=== PATIENT | male | born 1955 | race Caucasian/White ===

== ENCOUNTER → 2019-12-22 14:27 | Outpatient (CLI) | payer OTHER, SELFPAY ==
[2019-12-22 16:18] LABS: Anion Gap 4 (5-15); BUN 19 mg/dL (7-18); BUN/Creat Ratio 17.8 RATIO (10-20); Calcium,Total 8.8 mg/dL (8.5-10.1); Chloride 109 mmol/L (98-107); Creatinine, Serum 1.07 mg/dL (0.70-1.30); EST Glomerular Filtration Rate 74 mL/min (>60); Est Glom Filt Rate - Afr Amer 90 mL/min (>60); Glucose 89 mg/dL (74-106); Potassium 4.1 mmol/L (3.5-5.1); Sodium Level 140 mmol/L (136-145); Thyroid Stim Hormone (TSH) 0.16 uIU/mL (0.358-3.74)
== END ==
PROVIDERS: PCP Family Medicine; Visit Provider Family Medicine
DX: E03.9 Hypothyroidism, unspecified (principal)
CPT/HCPCS: 36415; 80048; 84443

== ENCOUNTER → 2020-02-09 12:01 | Outpatient (CLI) | payer OTHER, SELFPAY ==
[2020-02-09 15:35] LABS: T4 Free Direct 1.24 ng/dL (0.76-1.46); Thyroid Stim Hormone (TSH) 0.42 uIU/mL (0.358-3.74)
== END ==
PROVIDERS: PCP Family Medicine; Referring Provider Family Medicine; Visit Provider Family Medicine
DX: E03.9 Hypothyroidism, unspecified (principal)
CPT/HCPCS: 36415; 84439; 84443

== ENCOUNTER → 2020-11-22 14:21 | Outpatient (CLI) | payer OTHER, SELFPAY ==
--- NOTE | 2020-11-22 14:24 | RAD_ITS ---
STUDY: X-RAY - LEFT SHOULDER REASON FOR EXAM: Left shoulder pain for 4 months. TECHNIQUE: 4 view(s) of the shoulder. COMPARISON: None. FINDINGS: Normal glenohumeral articulation. 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 Normal acromion. Normal humeral head and visualized proximal humerus. The soft tissue structures are unremarkable. Normal visualized pulmonary apex. RAD/Shoulder min 2 Views IMPRESSION: Acromioclavicular arthrosis. Electronically Signed: Basilio Hart MD at 14:45 EST Tel , Service support ,
== END ==
PROVIDERS: PCP Family Medicine; Referring Provider Family Medicine; Visit Provider Family Medicine
DX: M12.812 Other specific arthropathies, not elsewhere classified, left shoulder (principal)
CPT/HCPCS: 73030

== ENCOUNTER → 2020-12-27 15:04 | Outpatient (CLI) | payer OTHER, SELFPAY ==
--- NOTE | 2020-12-27 15:06 | RAD_ITS ---
EXAM: XR CERVICAL SPINE, 4 OR 5 VIEWS CLINICAL INDICATION: CERVICAL RADICULITIS TECHNIQUE: Frontal, lateral and oblique views of the cervical spine. This report was created using [employer] report generation technology. COMPARISON: None. FINDINGS: VERTEBRAE: Anterior spondylosis of mid cervical levels with uncovertebral hypertrophy. Preserved vertebral body height. No acute fracture. Preservation of the normal cervical lordosis. No significant facet arthropathy. DISC SPACES: Disc space narrowing most conspicuous at C5-C6 and C6-C7. Bilateral foraminal stenosis at C3-C4, C4-C5 and C5-C6 as well as left C6-C7. SOFT TISSUES: Unremarkable. No prevertebral soft tissue widening. LUNG APICES: Clear. 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 Electronically Signed: Antonio Thomason MD ([place]) at 14:17 EDT , Service support ,
[2020-12-27 17:56] LABS: Anion Gap 7 (5-15); BUN 20 mg/dL (7-18); BUN/Creat Ratio 24.6 RATIO (10-20); Calcium,Total 9.1 mg/dL (8.5-10.1); Chloride 106 mmol/L (98-107); Creatinine, Serum 0.81 mg/dL (0.70-1.30); EST Glomerular Filtration Rate 102 mL/min (>60); Est Glom Filt Rate - Afr Amer 123 mL/min (>60); Glucose 66 mg/dL (74-106); Potassium 4.1 mmol/L (3.5-5.1); Sodium Level 139 mmol/L (136-145); T4 Free Direct 1.17 ng/dL (0.76-1.46); Thyroid Stim Hormone (TSH) 0.25 uIU/mL (0.358-3.74)
== END ==
PROVIDERS: PCP Family Medicine; Referring Provider Family Medicine; Visit Provider Family Medicine
DX: M54.12 Radiculopathy, cervical region (principal); E03.9 Hypothyroidism, unspecified; Z87.891 Personal history of nicotine dependence
CPT/HCPCS: 36415; 72050; 80048; 84439; 84443

== ENCOUNTER → 2021-02-28 07:55 | Outpatient (CLI) | payer OTHER, SELFPAY ==
[2021-02-28 11:04] LABS: Anion Gap 3 (5-15); BUN 22 mg/dL (7-18); BUN/Creat Ratio 28.2 RATIO (10-20); Calcium,Total 8.8 mg/dL (8.5-10.1); Chloride 108 mmol/L (98-107); Creatinine, Serum 0.78 mg/dL (0.70-1.30); EST Glomerular Filtration Rate 106 mL/min (>60); Est Glom Filt Rate - Afr Amer 129 mL/min (>60); Glucose 91 mg/dL (74-106); Sodium Level 140 mmol/L (136-145); T4 Free Direct 1.28 ng/dL (0.76-1.46); Thyroid Stim Hormone (TSH) 0.82 uIU/mL (0.358-3.74)
== END ==
PROVIDERS: PCP Family Medicine; Referring Provider Family Medicine; Visit Provider Family Medicine
DX: E03.9 Hypothyroidism, unspecified (principal); Z87.891 Personal history of nicotine dependence
CPT/HCPCS: 36415; 80048; 84439; 84443

== ENCOUNTER → 2022-03-31 | Outpatient (CLI) | payer MEDICARE, OTHER, SELFPAY ==
[2022-03-31 15:55] LABS: Anion Gap 6 (5-15); BUN 20 mg/dL (7-18); Chloride 104 mmol/L (98-107); Creatinine, Serum 1.05 mg/dL (0.70-1.30); EST Glomerular Filtration Rate 75 mL/min (>60); Est Glom Filt Rate - Afr Amer 91 mL/min (>60); Glucose 85 mg/dL (74-106); Potassium 3.4 mmol/L (3.5-5.1); Sodium Level 140 mmol/L (136-145); T4 Free Direct 1.22 ng/dL (0.76-1.46); Thyroid Stim Hormone (TSH) 1.63 uIU/mL (0.358-3.74)
== END | disposition home or self-care (01) ==
LOC: MTLAB 11:51
PROVIDERS: PCP Family Medicine; Referring Provider Family Medicine; Visit Provider Family Medicine
DX: E03.9 Hypothyroidism, unspecified (principal)
CPT/HCPCS: 36415; 80048; 84439; 84443

== ENCOUNTER → 2022-09-30 | Outpatient (CLI) | payer MEDICARE, OTHER, SELFPAY ==
[2022-09-30 16:58] LABS: Anion Gap 6 (5-15); BUN 14 mg/dL (7-18); BUN/Creat Ratio 14.2 RATIO (10-20); Calcium,Total 8.8 mg/dL (8.5-10.1); Chloride 105 mmol/L (98-107); Creatinine, Serum 0.98 mg/dL (0.70-1.30); EST Glomerular Filtration Rate 81 mL/min (>60); Est Glom Filt Rate - Afr Amer 98 mL/min (>60); Glucose 87 mg/dL (74-106); Potassium 3.6 mmol/L (3.5-5.1); Sodium Level 139 mmol/L (136-145); T4 Free Direct 1.08 ng/dL (0.76-1.46)
== END | disposition home or self-care (01) ==
LOC: BFHLAB 14:05
PROVIDERS: PCP Family Medicine; Visit Provider Family Medicine
DX: E03.9 Hypothyroidism, unspecified (principal)
CPT/HCPCS: 36415; 80048; 84439; 84443

== ENCOUNTER → 2022-12-25 | Outpatient (CLI) | payer MEDICARE, OTHER, SELFPAY | END | disposition home or self-care (01) | LOC: BFHLAB 11:26 | PROVIDERS: PCP Family Medicine; Referring Provider Family Medicine; Visit Provider Family Medicine | DX: E03.9 Hypothyroidism, unspecified (principal) | CPT/HCPCS: 36415; 84443 ==

== ENCOUNTER → 2023-03-09 | Outpatient (CLI) | payer MEDICARE, OTHER, SELFPAY ==
[2023-03-09 18:18] LABS: T4 Free Direct 1.03 ng/dL (0.76-1.46); Thyroid Stim Hormone (TSH) 3.44 uIU/mL (0.358-3.74)
== END | disposition home or self-care (01) ==
LOC: BFHLAB 14:42
PROVIDERS: PCP Family Medicine; Referring Provider Family Medicine; Visit Provider Family Medicine
DX: E03.9 Hypothyroidism, unspecified (principal)
CPT/HCPCS: 36415; 84439; 84443

== ENCOUNTER → 2023-09-01 | Outpatient (CLI) | payer MEDICARE, OTHER, SELFPAY ==
[2023-09-01 12:54] LABS: Absolute Neutrophil Count 2.4 X10^3/uL (2.0-7.7); Basophil# 0.07 X10^3/uL; Basophil% 1.7 % (0-1); Eosinophil# 0.17 X10^3/uL; Eosinophils% 4.1 % (0-5); Hematocrit 42.9 % (40-54); Hemoglobin 13.7 g/dL (13.0-16.5); Lymphocyte % 24.3 % (19-41); Mean Corp Hgb Conc 31.9 g/dL (32-36); Mean Corpuscular Volume 87.6 fL (80-94); Mean Platelet Vol. 10.5 fl (6.2-12.0); Monocyte% 12.2 % (0-10); NRBC Flagged by Analyzer 0 % (0-5); Neutrophil # 2.36 X10^3/uL (2.7-7.7); Neutrophil % 57.5 % (47-70); Platelet Count 280 K/mm3 (150-450); RBC Distribution Width CV 13.9 % (11.6-14.6); RBC Distribution Width SD 44.3 fl (35.1-43.9); White Blood Count 4.1 K/mm3 (4.4-11.0)
[2023-09-01 13:00] LABS: ALB/GLOB Ratio 1.1 RATIO (0.9-2.4); AST(SGOT) 25 U/L (15-37); Alanine Aminotransfer ALT/SGPT 29 U/L (16-61); Albumin, Serum 3.5 g/dL (3.2-5.0); Alkaline Phosphatase 59 U/L (45-117); Anion Gap 5 (5-15); BUN 19 mg/dL (7-18); Calcium,Total 8.3 mg/dL (8.5-10.1); Chloride 108 mmol/L (98-107); Cholesterol 187 mg/dL (200); Creatinine, Serum 0.82 mg/dL (0.70-1.30); EST Glomerular Filtration Rate 99 mL/min (>60); Est Glom Filt Rate - Afr Amer 120 mL/min (>60); Globulin 3.2 g/dL (2.2-4.2); Glucose 94 mg/dL (74-106); High Density Lipoprotein 54 mg/dL; PSA,Total - Annual Screen 1.48 ng/mL (0.00-4.00); Potassium 4.5 mmol/L (3.5-5.1); Protein, Total 6.7 g/dL (6.4-8.2); Sodium Level 140 mmol/L (136-145); T4 Free Direct 1.35 ng/dL (0.76-1.46); Triglycerides 65 mg/dL; Very Low Density Lipoprotein 13 mg/dL (5-40)
== END | disposition home or self-care (01) ==
LOC: BFHLAB 11:01
PROVIDERS: PCP Nurse Practitioner Family; Visit Provider Nurse Practitioner Family
DX: E03.9 Hypothyroidism, unspecified (principal); E78.5 Hyperlipidemia, unspecified; I10 Essential (primary) hypertension; Z12.5 Encounter for screening for malignant neoplasm of prostate
CPT/HCPCS: 36415; 80053; 80061; 84153; 84439; 84443; 85025; G0103

== ENCOUNTER → 2024-03-08 | Outpatient (CLI) | payer MEDICARE, OTHER, SELFPAY ==
[2024-03-08 16:16] LABS: T4 Free Direct 1.32 ng/dL (0.76-1.46); Thyroid Stim Hormone (TSH) 1.29 uIU/mL (0.358-3.74)
== END | disposition home or self-care (01) ==
LOC: BFHLAB 11:21
PROVIDERS: PCP Nurse Practitioner Family; Referring Provider Nurse Practitioner Family; Visit Provider Nurse Practitioner Family
DX: E03.9 Hypothyroidism, unspecified (principal)
CPT/HCPCS: 36415; 84439; 84443

== ENCOUNTER → 2024-11-18 | Outpatient (CLI) | payer MEDICARE, OTHER, SELFPAY ==
[2024-11-18 10:46] LABS: T4 Free Direct 1.61 ng/dL (0.76-1.46); Thyroid Stim Hormone (TSH) 0.048 uIU/mL (0.358-3.740)
== END | disposition home or self-care (01) ==
LOC: LAB 09:08
PROVIDERS: PCP Nurse Practitioner Family; Referring Provider Nurse Practitioner Family; Visit Provider Nurse Practitioner Family
DX: E03.9 Hypothyroidism, unspecified (principal)
CPT/HCPCS: 36415; 84439; 84443

== ENCOUNTER → 2025-01-04 | Outpatient (CLI) | payer MEDICARE, OTHER, SELFPAY ==
[2025-01-04 17:03] LABS: Thyroid Stim Hormone (TSH) 0.104 uIU/mL (0.300-4.200)
== END | disposition home or self-care (01) ==
LOC: MTLAB 13:29
PROVIDERS: PCP Nurse Practitioner Family; Referring Provider Nurse Practitioner Family; Visit Provider Nurse Practitioner Family
DX: E03.9 Hypothyroidism, unspecified (principal)
CPT/HCPCS: 36415; 84439; 84443

== ENCOUNTER → 2025-02-28 | Outpatient (CLI) | payer MEDICARE, OTHER, SELFPAY | END | disposition home or self-care (01) | LOC: MTLAB 11:44 | PROVIDERS: PCP Nurse Practitioner Family; Referring Provider Nurse Practitioner Family; Visit Provider Nurse Practitioner Family | DX: E03.9 Hypothyroidism, unspecified (principal) | CPT/HCPCS: 36415; 84439; 84443 ==

== ENCOUNTER → 2025-03-19 | Outpatient (CLI) | payer MEDICARE, OTHER, SELFPAY ==
[2025-03-19 12:17] LABS: Absolute Lymphocyte Count 0.77 X10^3/uL (0.83-4.51); Absolute Neutrophil Count 2.8 X10^3/uL (2.0-7.7); Basophil# 0.04 X10^3/uL; Basophil% 0.9 % (0-1); Eosinophil# 0.22 X10^3/uL; Eosinophils% 5.2 % (0-5); Hematocrit 36.7 % (40-54); Lymphocyte # 0.77 X10^3/ul (0.83-4.51); Lymphocyte % 18.2 % (19-41); Mean Corp Hgb Conc 32.7 g/dL (32-36); Mean Corpuscular Hgb 27.6 pg (27.0-32.0); Mean Corpuscular Volume 84.4 fL (80-94); Mean Platelet Vol. 10.1 fl (6.2-12.0); Monocyte# 0.38 X10^3/uL; NRBC Flagged by Analyzer 0 % (0-5); Neutrophil # 2.81 X10^3/uL (2.7-7.7); Neutrophil % 66.5 % (47-70); Platelet Count 271 K/mm3 (150-450); RBC Distribution Width CV 14.8 % (11.6-14.6); RBC Distribution Width SD 45.4 fl (35.1-43.9); Red Blood Count 4.35 M/mm3 (4.6-6.2); White Blood Count 4.2 K/mm3 (4.4-11.0)
[2025-03-19 15:53] LABS: ALB/GLOB Ratio 1.4 RATIO (0.9-2.4); AST(SGOT) 22 U/L (<=37); Alanine Aminotransfer ALT/SGPT 16 U/L (<=46); Alkaline Phosphatase 77 U/L (40-129); Anion Gap 11 (5-15); BUN 19 mg/dL (4-19); BUN/Creat Ratio 19.2 RATIO (10-20); Calcium,Total 8.9 mg/dL (7.6-11.0); Carbon Dioxide 22.9 mmol/L (21.0-32.0); Chloride 104 mmol/L (98-108); Cholesterol 168 mg/dL (<=200); Creatinine, Serum 0.97 mg/dL (0.70-1.20); EST Glomerular Filtration Rate 85 (>60); Globulin 2.8 g/dL (2.2-4.2); Glucose 84 mg/dL (70-99); High Density Lipoprotein 51 mg/dL; Low Density Lipoprotein Calc. 103 mg/dL; PSA,Total - Annual Screen 1.28 ng/mL (0.02-4.00); Potassium 4.1 mmol/L (3.3-5.1); Protein, Total 6.8 g/dL (5.9-8.4); Sodium Level 138 mmol/L (133-145); Total Bilirubin 0.72 mg/dL (0.00-1.30); Triglycerides 72 mg/dL; Very Low Density Lipoprotein 14 mg/dL (5-40); cholesterol:hdl ratio screen 3.31
--- OUTSIDE RECORDS SUMMARY | 2025-03-19 22:47 | XMS RPT_ITS | CCD ---
Author Organization [facility] Care Team Providers Care Agricultural Produce Sorter Name Role Phone UGO SANCHEZ Consulting Unavailable ESQUIVELROBERTH Kelly Attending Unavailable ESQUIVEL, ROBERTH C Primary Care Unavailable ESQUIVEL, ROBERTH C Admitting Unavailable UGO SANCHEZ Referring Unavailable PROVIDER, UNKNOWN Consulting Unavailable Lj ENTERTAINMENT AGENT-C, Janee Primary Care Provider [phone] Lj ENTERTAINMENT AGENT-C, Janee Attending Provider Lj ENTERTAINMENT AGENT-C, Janee Referring Provider Lj, Janee Referring Unavailable Lj, Janee Attending Unavailable Lj, Janee Primary Care Unavailable Lj, Janee Referring Unavailable Lj, Janee Attending Unavailable Lj, Janee Primary Care Unavailable Lj, Janee Referring Unavailable Lj, Janee Attending Unavailable Lj, Janee Primary Care Unavailable Lj, Janee Referring Unavailable Lj, Janee Attending Unavailable Lj, Janee Primary Care Unavailable Allergies Allergy Classification Reported Allergen(s) Allergy Type Date of Onset Reaction(s) Facility (1 source) BEE STING; Translations: [BEE STING] Propensity to adverse reactions (disorder) [facility] Repository Problems Problem Classification Problem Date Documented Da te Episodic/Chronic Thyroid disorders (1 source) Hypothyroidism, unspecified; Translations: [Hypothyroidism, unspecified] Onset: 03-05-2025 Chronic Results Test Name Value Interpretation Reference Range Facility T4 Free Directon 03-01-2025 T4 FREE DIRECT 1.40 ng/dL Normal 0.76-1.46 [facility] Comment on above: Performed By: #### L 506.0400, [id number] #### [facility] [place], [address] Thyroid Stim Hormone (TSH)on 03-01-2025 TSH 1.950 uIU/mL Normal 0.300-4.200 [facility] Comment on above: Performed By: #### L 506.0400, [id number] #### [facility] [address], [place], [address] T4 freeOrdered By: Janeejosé miguel teague on 02-28-2025 Free T4 [Mass/Vol] 1.40 ng/dL 0.76-1.46 [facility] TSH DL <= 0.005 mIU/L QnOrde red By: Janeejosé miguel Calhoun on 02-28-2025 TSH Qn 1.950 uIU/mL 0.300-4.200 [facility] T4 Free Directon 01-04-2025 T4 FREE DIRECT 1.60 ng/dL High 0.76-1.46 [facility] Comment on above: Performed By: #### L 501.9520, L506.0400 #### [facility] [address] [place], [place], [id number] T4 freeOrdered By: Janeejosé miguel teague on 01-04-2025 Free T4 [Mass/Vol] 1.60 ng/dL High 0.76-1.46 [facility] TSH DL <= 0.005 mIU/L QnOrde red By: Janee Calhoun on 01-04-2025 Thyroid Stimulating Hormone (TSH) 0.104 uIU/mL Low 0.300-4.200 [facility] TSH Qn 0.104 uIU/mL Low 0.300-4.200 [facility] Thyroid Stim Hormone (TSH)on 01-04-2025 TSH 0.104 uIU/mL Low 0.300-4.200 [facility] Comment on above: Performed By: #### L 501.9520, L506.0400 #### [facility] [address] [place], [place], [id number] Direct serum free thyroxine (FT4) measurementOrdered By: Janee Calhoun on 11-18-2024 Free T4 [Mass/Vol] 1.61 ng/dL High 0.76-1.46 [facility] Serum or plasma thyroid stim ulating hormone (TSH) measurement (units/volume)Ordered By: Janee Calhoun on 11-18-2024 TSH Qn 0.048 uIU/mL Low 0.358-3.740 [facility] T4 Free Directon 11-18-2024 T4 FREE DIRECT 1.61 ng/dL High 0.76-1.46 [facility] Comment on above: Performed By: #### L 506.0400, [id number] #### [facility] [address] [place], [address] TSH QnOrdered By: Janee santo on 11-18-2024 Thyroid Stimulating Hormone (TSH) 0.048 uIU/mL Low 0.358-3.740 [facility] Thyroid Stim Hormone (TSH)on 11-18-2024 TSH 0.048 uIU/mL Low 0.358-3.740 [facility] Comment on above: Performed By: #### L 506.0400, [id number] #### [facility] [address] [place], [address] T4 Free Directon 03-08-2024 T4 FREE DIRECT 1.32 ng/dL Normal 0.76-1.46 [facility] Comment on above: Order Comment: N Performed By: #### L 506.0400, [id number] #### [facility] [address] [place], [address] Thyroid Stim Hormone (TSH)on 03-08-2024 TSH 1.29 uIU/mL Normal 0.358-3.74 [facility] Comment on above: Order Comment: N Performed By: #### L 506.0400, [id number] #### [facility] [address] [place], [address] EMERGENCY REPORTon EMERGENCY REPORT [facility] EM[facility]GENC[facility] RO[facility] REPORT NAME ACCOUNT SEX AGE ADMIT DISCHARGE PT MED. RECORD# NUMBER DATE DATE TYPE ENZO [id number] M 68 01/10/24 01/10/24 3 SOLANGE [id number] ROOM: ER DATE OF : 1955 DICTATING PHYSICIAN: Roberth Esquivel CHIEF COMPLAINT: Testicular pain. HISTORY OF PRESENT ILLNESS: The patient states that last night and today he has been having some intermittent left testicular pain. He states that at times the pain will improve and then radiate to his left inguinal area, even into the left side and back/flank area. At times the pain would get quite severe and then at other times let up and be only minimal. He did not have any fever or chills. He felt minimally nauseated. He did have some gas earlier that seemed to have resolved. He has a little bit of pressure and urgency with urinating but no pain with going. He was able to eat and drink. Since he got to the Emergency Department the pain is much improved, and he states he really feels much better presently. He has not had anything like this in the past. No history of kidney stones. No recent injury or trauma. PAST MEDICAL HISTORY: Negative for other medical problems. MEDICATIONS: He takes no medications. ALLERGIES: No allergies. SOCIAL HISTORY: He lives at home. He does not smoke or drink alcohol. PHYSICAL EXAMINATION: GENERAL: This is a pleasant 68-year-old male who is alert and appropriate. He does not appear toxic or in acute distress. SKIN: Skin is pink, warm and dry. HEENT: Examination is normal. NECK: His neck is supple. LUNGS: Lungs are clear. ABDOMEN: Abdomen is soft and nontender. BACK: No back or flank tenderness. : Examination is unremarkable. EXTREMITIES: He moves all extremities appropriately without any focal weaknesses. VITAL SIGNS: Within normal limits. DIAGNOSTIC DATA: The patient had a urinalysis obtained, which showed a small amount of ketones, but there was no evidence of any white blood cells, red blood cells or bacteria. I did proceed to get a CT KUB, and that was negative for any collecting system abnormalities and was essentially negative. Page 1 of 2 SOLANGE GIRALDO Emergency Room Report GIRALDOJAMIE WHITEMOND : 1955 EMERGENCY DEPARTMENT COURSE AND TREATMENT: On reexamination, he basically had no complaints. The symptoms are certainly somewhat suspicious for renal colic, but no evidence of that showed up on the scan. The possibility of epididymitis could be considered, but his symptoms presently are essentially gone. I did recommend that he take naproxen 440 mg b.i.d. for the next one to two days, pushing fluids and returning if symptoms worsen. Otherwise, follow up with his family doctor in 1-2 days. Dictated By: Roberth Esquivel MD 01/10/24 17:31 JOB #: [id number] Transcribed By: remedios 01/11/24 06:24 Electronically signed by: KALYN Esquivel M.D. 01/15/24 07:03 Page 2 of 2 SOLANGE GIRALDO Emergency Room Report Normal [facility] CT KUB (KIDNEY STONE PROTOCO L)on 01-10-2024 CT KUB (KIDNEY STONE PROTOCOL) [place] [address] Patient: SOLANGE GIRALDO Phone#: : 1955 Age: 68 Gender: M Pt. Type: ER Account: [id number] Location: [facility] Ordering: ROBERTH ESQUIVEL Exam Date: 01/10/2024/15:03 Family Phys: UGO SANCHEZ Charge Code: 472203 Physician: Logan Order #: [id number] Dose#: 11.6 mGy PROCEDURE: CT ABDOMEN AND PELVIS WITHOUT CONTRAST COMPARISON: None. INDICATIONS: Abdominal pain. TECHNIQUE: After obtaining the patient's consent, CT images of the abdomen and pelvis were created without non-ionic intravenous contrast material. All CT scans at this facility use dose modulation, iterative reconstruction, and/or weight based dosing when appropriate to reduce radiation dose to as low as reasonably achievable. IV CONTRAST: No IV contrast used,0ml TOTAL DOSE: 11.6 CTDIvol(mGy) FINDINGS: Evaluation of the solid organs and soft tissues is limited in the absence of intravenous contrast. KIDNEYS: Several low-attenuation lesions in both kidneys incompletely characterized without contrast. The largest lesion is on the left and measures 2.7 x 3.9 cm. No nephrolithiasis or hydronephrosis. ADRENALS: There is a right adrenal adenoma measuring 2.2 x 1.7 x 2.0 cm, HU -8. Left adrenal gland is unremarkable. URINARY BLADDER: Partially filled LIVER: Unremarkable in contour. BILIARY: Gallbladder is present. PANCREAS: Unremarkable in contour SPLEEN: Unremarkable in contour AORTA/VASCULAR: Is accessory left renal artery. No aortic aneurysm. There are scattered atherosclerotic calcifications of the aorta and branch vessels. RETROPERITONEUM: Normal. No mass or adenopathy. BOWEL/MESENTERY: No bowel obstruction or dilatation. No significant stool burden. The appendix is unremarkable in size and contains air. ABDOMINAL WALL: Small fat containing umbilical hernia. Fat containing bilateral inguinal hernias. PELVIC NODES: Normal. No adenopathy. PELVIC ORGANS: Prostate contains calcifications. Continued Report - Page 2 of 2 Patient: SOLANGE GIRALDO Phone#: : 1955 Age: 68 Gender: M Pt. Type: ER Account: [id number] Location: 052 Ordering: ROBERTH ESQUIVEL Exam Date: 01/10/2024/15:03 Family Phys: UGO SANCHEZ Charge Code: 715821 Physician: Logan Order #: [id number] Dose#: 11.6 mGy BONES: Osteophyte of the right sacroiliac joint. Disc height loss at L4-5 and L5-S1 noted bilateral left foraminal narrowing and L4-5 right foraminal narrowing. LUNG BASES: Atelectasis versus scarring in the lung bases. OTHER: Negative. CONCLUSION: 1. No nephrolithiasis or hydronephrosis. Dictated by: Lita Chen MD on 01/10/2024 at 15:23 Approved by: Lita Chen MD on 01/10/2024 at 15:39 Normal [facility] URINALYSISon 01-10-2024 Bilirubin Ql (U) Negative Normal NORMAL: NEGATIVE [facility] Comment on above: Performed By: #### 2 [id number] #### [facility],[address] [place] [address] Clarity (U) clear Normal NORMAL: CLEAR [facility] Comment on above: Performed By: #### 2 82870 #### [facility],[address] [place] [address] Color (U) yellow Normal NORMAL: YELLOW [facility] Comment on above: Performed By: #### 2 18475 #### [facility],[address] [place] [address] Glucose Ql (U) NORM Normal NORMAL: NORMAL [facility] Comment on above: Performed By: #### 2 17749 #### [facility],[address] [place] [address] Hemoglobin Ql (U) Negative Normal NORMAL: NEGATIVE [facility] Comment on above: Performed By: #### 2 08860 #### [facility],[address] [place] [address] Ketone 50 Abnormal NORMAL: NEGATIVE [facility] Comment on above: Performed By: #### 2 54287 #### [facility],[address] [place] [address] Leukocytes Negative Normal NORMAL: NEGATIVE [facility] Comment on above: Performed By: #### 2 69668 #### [facility],[address] [place] [address] Nitrite Ql (U) Negative Normal NORMAL: NEGATIVE [facility] Comment on above: Performed By: #### 2 22692 #### [facility],[address] [place] [address] pH (U) 7 [pH] Normal NORMAL: 5.0-8.0 [facility] Comment on above: Performed By: #### 2 22249 #### [facility],[address] [place] [address]82 Protein Ql (U) 15 Abnormal NORMAL: NEGATIVE [facility] Comment on above: Performed By: #### 2 18619 #### [facility],[address] [place] [address] Sp [place] 1.010 Normal NORMAL: 1.010-1.030 [facility] Comment on above: Performed By: #### 2 54668 #### [facility],[address] [place] [address] Specimen Type Void Normal [facility] Comment on above: Performed By: #### 2 21449 #### [facility],[address] [place], [place] [id number] Urinalysis dipstick W Reflex Microscopic panel (U) NOT INDICATED Normal [facility] Comment on above: Performed By: #### 2 26555 #### [facility],[address] [place] [address]33 Urobilinog NORM Normal NORMAL: NORMAL [facility] Comment on above: Performed By: #### 2 26451 #### [facility],[address] [place] [address] Absolute lymphocyte countOrd ered By: Janee Calhoun on 09-01-2023 Lymphocytes Auto (Unsp spec) [#/Vol] 1.00 10*3/uL 0.83-4.51 [facility] Basophil percentageOrdered B y: Janee Calhoun on 09-01-2023 Basophils/100 WBC (Bld) 1.7 % 0-1 [facility] Bilirubin [Mass/Vol] 0.40 mg/dL 0.20-1.00 [facility] Comment on above: For patients on eltr ombopag therapy, use of Dimension [place] TBIL is not recommended. Chloride [Moles/Vol] 108 mmol/L 98-107 [facility] Cholesterol [Mass/Vol] 187 mg/dL <200 [facility] Comment on above: <200 mg/dL Desirable 200-240 mg/dL Borderline >240 mg/dL High Risk Eosinophils/100 WBC (Bld) 4.1 % 0-5 [facility] Glucose [Mass/Vol] 94 mg/dL 74-106 [facility] Neutrophils (Bld) [#/Vol] 2.4 10*3/uL 2.0-7.7 [facility] Neutrophils/100 WBC (Bld) 57.5 % 47-70 [facility] Potassium [Moles/Vol] 4.5 mmol/L 3.5-5.1 [facility] Protein [Mass/Vol] 6.7 g/dL 6.4-8.2 [facility] Sodium [Moles/Vol] 140 mmol/L 136-145 [facility] Triglyceride [Mass/Vol] 65 mg/dL <199 [facility] Comment on above: The drugs N-Acetylcy steine and Metamizole may falsely depress this assay.Serum Triglycerides Reference Interval Normal <150 mg/dL Borderline high 150 - 199 mg/dL High 200 - 499 mg/dL Very High > or = 500 mg/dL WBC (Bld) [#/Vol] 4.1 10*3/uL 4.4-11.0 [facility] Blood erythrocytes count (nu mber/volume)Ordered By: Janee Calhoun on 09-01-2023 RBC (Bld) [#/Vol] 4.90 10*6/uL 4.6-6.2 [facility] Blood hemoglobin measurement (mass/volume)Ordered By: Janee Calhoun on 09-01-2023 Hemoglobin (Bld) [Mass/Vol] 13.7 g/dL 13.0-16.5 [facility] Blood lymphocytes/100 leukoc ytesOrdered By: Janeejosé miguel Calhoun on 09-01-2023 Lymphocytes/100 WBC (Bld) 24.3 % 19-41 [facility] Blood monocytes/100 leukocyt esOrdered By: Janeejosé miguel Calhoun on 09-01-2023 Monocytes/100 WBC (Bld) 12.2 % 0-10 [facility] Blood platelet mean volumeOr dered By: Janee Calhoun on 09-01-2023 Platelet mean volume (Bld) [Entitic vol] 10.5 fL 6.2-12.0 [facility] Determination of erythrocyte mean corpuscular volume (MCV)Ordered By: Janee Calhoun on 09-01-2023 MCV (RBC) [Entitic vol] 87.6 fL 80-94 [facility] Hematocrit Auto (Bld) [Volum e fraction]Ordered By: Janeejosé miguel Calhoun on 09-01-2023 Hematocrit (Bld) [Volume fraction] 42.9 % 40-54 [facility] - Chemistry and C hemistry - challengeOrdered By: Janee Calhoun on 09-01-2023 ALP [Catalytic activity/Vol] 59 U/L 45-117 [facility] ALT [Catalytic activity/Vol] 29 U/L 16-61 [facility] CO2 [Moles/Vol] 27.0 mmol/L 21.0-32.0 [facility] Free T4 [Mass/Vol] 1.35 ng/dL 0.76-1.46 [facility] Globulin (S) [Mass/Vol] 3.2 g/dL 2.2-4.2 [facility] Urea nitrogen/Creatinine [Mass ratio] 23.0 mg/mg 10-20 [facility] - Hematology and Cell countsOrdered By: Janee Calhoun on 09-01-2023 Erythrocyte distribution width (RBC) [Entitic vol] 44.3 fL 35.1-43.9 [facility] Erythrocyte distribution width (RBC) [Ratio] 13.9 % 11.6-14.6 [facility] Immature granulocytes/100 WBC (Bld) 0.200 % 0.0-0.9 [facility] Comment on above: IG% - Immature Granu locytes (promyelocytes, myelocytes and metamyelocytes) > 1% indicates that a LEFT SHIFT is Present. MCH (RBC) [Entitic mass] 28.0 pg 27.0-32.0 [facility] Nucleated RBC/100 WBC (Bld) [Ratio] 0 % 0-5 [facility] MCHC Auto (RBC) [Mass/Vol]Or dered By: Janee Calhoun on 09-01-2023 MCHC (RBC) [Mass/Vol] 31.9 g/dL 32-36 [facility] No Panel InformationOrdered By: Janee Calhoun on 09-01-2023 Estimated GFR (MDRD) Amer 120 mL/min >60 [facility] Comment on above: GFR Calc Estimated GFR (MDRD) Non-Af Amer 99 mL/min >60 [facility] Comment on above: Non- GFR Calc Prostate Specific Antigen Screen 1.48 ng/mL 0.00-4.00 [facility] Comment on above: This test was perfor med using the TPSA assay method for the[facility]. Values obtained with differentassay methods cannot be used interchangably.When changing PSA assays in the course of monitoring apatient, additional sequential testing should be carriedout to confirm baseline values. Thyroid Stimulating Hormone (TSH) 0.90 uIU/mL 0.358-3.74 [facility] Platelets bldOrdered By: Azam Calhoun on 09-01-2023 Platelets (Bld) [#/Vol] 280 10*3/uL 150-450 [facility] Serum or plasma albumin alessandro urement (mass/volume)Ordered By: Janee Calhoun on 09-01-2023 Albumin [Mass/Vol] 3.5 g/dL 3.2-5.0 [facility] Serum or plasma albumin/glob ulin mass ratioOrdered By: Janee Calhoun on 09-01-2023 Albumin/Globulin [Mass ratio] 1.1 {ratio} 0.9-2.4 [facility] Serum or plasma calcium alessandro urement (mass/volume)Ordered By: Janee Calhoun on 09-01-2023 Calcium [Mass/Vol] 8.3 mg/dL 8.5-10.1 [facility] Serum or plasma cholesterol in HDL measurement (mass/volume)Ordered By: Janee Calhoun on 09-01-2023 Cholesterol in HDL [Mass/Vol] 54 mg/dL >40 [facility] Comment on above: The drugs N-Acetylcy steine and Metamizole may falsely depress this assay. Reference Range HDL <40 mg/dL Low HDL Cholesterol HDL >or= 60 mg/dL High HDL Cholesterol Serum or plasma cholesterol in VLDL measurement (mass/volume)Ordered By: Janee Calhoun on 09-01-2023 Cholesterol in VLDL [Mass/Vol] 13 mg/dL 5-40 [facility] Serum or plasma creatinine m easurement (mass/volume)Ordered By: Janee Calhoun on 09-01-2023 Creatinine [Mass/Vol] 0.82 mg/dL 0.70-1.30 [facility] Comment on above: The validity of the calculated GFR & GFRAA in patients over 70 years has not been determined. Clinical correlation is essential. Serum or plasma low density lipoprotein (LDL) cholesterol measurement (mass/volume)Ordered By: Janee Calhoun on 09-01-2023 Cholesterol in LDL [Mass/Vol] 120 mg/dL 0-130 [facility] Serum or plasma urea nitroge n measurement (mass/volume)Ordered By: Janee Calhoun on 09-01-2023 Urea nitrogen [Mass/Vol] 19 mg/dL 7-18 [facility] Thin prep Papanicolaou smear with manual screeningOrdered By: Janee Calhoun on 09-01-2023 Thin prep Papanicolaou smear with manual screening 25 U/L 15-37 [facility] Thin prep Papanicolaou smear with manual screening 5 5-15 [facility] - Chemistry and C hemistry - challengeOrdered By: Dr. Sanchez on 03-09-2023 Free T4 [Mass/Vol] 1.03 ng/dL 0.76-1.46 [facility] No Panel InformationOrdered By: Dr. Sanchez on 03-09-2023 Thyroid Stimulating Hormone (TSH) 3.44 uIU/mL 0.358-3.74 [facility] No Panel InformationOrdered By: Dr. Sanchez on 12-25-2022 Thyroid Stimulating Hormone (TSH) 0.80 uIU/mL 0.358-3.74 [facility] Basophil percentageOrdered B y: Dr. Sanchez on 09-30-2022 Chloride [Moles/Vol] 105 mmol/L 98-107 [facility] Glucose [Mass/Vol] 87 mg/dL 74-106 [facility] Potassium [Moles/Vol] 3.6 mmol/L 3.5-5.1 [facility] Sodium [Moles/Vol] 139 mmol/L 136-145 [facility] - Chemistry and C hemistry - challengeOrdered By: Dr. Sanchez on 09-30-2022 CO2 [Moles/Vol] 28.0 mmol/L 21.0-32.0 [facility] Free T4 [Mass/Vol] 1.08 ng/dL 0.76-1.46 [facility] Urea nitrogen/Creatinine [Mass ratio] 14.2 mg/mg 10-20 [facility] No Panel InformationOrdered By: Dr. Sanchez on 09-30-2022 Estimated GFR (MDRD) Amer 98 mL/min >60 [facility] Comment on above: GFR Calc Estimated GFR (MDRD) Non-Af Amer 81 mL/min >60 [facility] Comment on above: Non- GFR Calc Thyroid Stimulating Hormone (TSH) 13.40 uIU/mL 0.358-3.74 [facility] Serum or plasma calcium alessandro urement (mass/volume)Ordered By: Dr. Sanchez on 09-30-2022 Calcium [Mass/Vol] 8.8 mg/dL 8.5-10.1 [facility] Serum or plasma creatinine m easurement (mass/volume)Ordered By: Dr. Sanchez on 09-30-2022 Creatinine [Mass/Vol] 0.98 mg/dL 0.70-1.30 [facility] Comment on above: The validity of the calculated GFR & GFRAA in patients over 70 years has not been determined. Clinical correlation is essential. Serum or plasma urea nitroge n measurement (mass/volume)Ordered By: Dr. Sanchez on 09-30-2022 Urea nitrogen [Mass/Vol] 14 mg/dL 7-18 [facility] Thin prep Papanicolaou smear with manual screeningOrdered By: Dr. Sanchez on 09-30-2022 Thin prep Papanicolaou smear with manual screening 6 5-15 [facility] Basophil percentageon 2021 Chloride [Moles/Vol] 104 mmol/L 98-107 [facility] Work Phone: Glucose [Mass/Vol] 85 mg/dL 74-106 [facility] Work Phone: Potassium [Moles/Vol] 3.4 mmol/L 3.5-5.1 [facility] Work Phone: Sodium [Moles/Vol] 140 mmol/L 136-145 [facility] Work Phone: Laboratory - Chemistry and C hemistry - challengeon 03-31-2022 CO2 [Moles/Vol] 30.0 mmol/L 21.0-32.0 [facility] Work Phone: Free T4 [Mass/Vol] 1.22 ng/dL 0.76-1.46 [facility] Work Phone: Urea nitrogen/Creatinine [Mass ratio] 19.0 mg/mg 10-20 [facility] Work Phone: No Panel Informationon 03-31 Estimated GFR (MDRD) Amer 91 mL/min >60 [facility] Work Phone: Comment on above: GFR Calc Estimated GFR (MDRD) Non-Af Amer 75 mL/min >60 [facility] Work Phone: Comment on above: Non- GFR Calc Thyroid Stimulating Hormone (TSH) 1.63 uIU/mL 0.358-3.74 [facility] Work Phone: Serum or plasma calcium alessandro urement (mass/volume)on 03-31-2022 Calcium [Mass/Vol] 9.0 mg/dL 8.5-10.1 [facility] Work Phone: Serum or plasma creatinine m easurement (mass/volume)on 03-31-2022 Creatinine [Mass/Vol] 1.05 mg/dL 0.70-1.30 [facility] Work Phone: Comment on above: The validity of the calculated GFR & GFRAA in patients over 70 years has not been determined. Clinical correlation is essential. Serum or plasma urea nitroge n measurement (mass/volume)on 03-31-2022 Urea nitrogen [Mass/Vol] 20 mg/dL 7-18 [facility] Work Phone: Thin prep Papanicolaou smear with manual screeningon 03-31-2022 Thin prep Papanicolaou smear with manual screening 6 5-15 [facility] Work Phone: Encounters Encounter Date Encounter Type Care Provider Facility Start: 02-28-2025 End: 02-28-2025 ambulatory Janee Calhoun ENTERTAINMENT AGENT-C Work Phone: [facility] Work Phone: Start: 02-28-2025 End: 02-28-2025 Patient encounter procedure Janee Calhoun ENTERTAINMENT AGENT-C -[facility] [place] Work Phone: Start: 02-28-2025 End: 02-28-2025 ambulatory Janee Calhoun Facility:[facility] Start: 01-04-2025 End: 01-04-2025 ambulatory Janee Calhoun ENTERTAINMENT AGENT-C Work Phone: [facility] Work Phone: Start: 01-04-2025 End: 01-04-2025 Patient encounter procedure Janee Calhoun ENTERTAINMENT AGENT-C -[facility], [place] Work Phone: Start: 01-04-2025 End: 01-04-2025 ambulatory Janee Calhoun Facility:[facility] Start: 11-18-2024 End: 11-18-2024 Patient encounter procedure Janee Calohun ENTERTAINMENT AGENT-C -Laboratory Work Phone: Start: 11-18-2024 End: 11-18-2024 ambulatory [facility] Facility:[facility] Start: 03-08-2024 End: 03-08-2024 ambulatory [facility] Facility:[facility] Start: 01-10-2024 End: 01-10-2024 Emergency department patient visit [facility] Start: 09-01-2023 End: 09-01-2023 ambulatory [facility] Work Phone: Start: 09-01-2023 End: 09-01-2023 Patient encounter procedure [facility], [facility] Start: 03-09-2023 End: 03-09-2023 ambulatory [facility] Work Phone: Start: 03-09-2023 End: 03-09-2023 Patient encounter procedure [facility], [facility]ly [facility] Start: 12-25-2022 End: 12-25-2022 ambulatory [facility] Work Phone: Start: 12-25-2022 End: 12-25-2022 Patient encounter procedure [facility], [facility]ly [facility] Start: 09-30-2022 End: 09-30-2022 ambulatory [facility] Work Phone: Start: 09-30-2022 End: 09-30-2022 Patient encounter procedure [facility], [facility] Loz[facility] Start: 03-31-2022 End: 03-31-2022 Patient encounter procedure [facility], [place] Procedures Date Procedure Procedure Detail Performing Clinician Start: 01-10-2024 Urinalysis UGO PRIEST Comment on above: Result Comment: URIN ALYSIS Performed By: #### [id number] #### Tip [facility],[address] [place] [address] Payers Date Payer Category Payer Medicare [id number] 2024 Self-pay [id number] 2014 Unknown [id number] 1955 Unknown [id number] Unknown [id number] Unknown [id number] [id number] [id number] Unknown [id number] [id number] [id number] Unknown [id number] [id number] Social History Date Type Detail [facility] Work Phone: Start: 1955 Sex Assigned At Male [facility] Work Phone: Start: 01-09-2025 Sex Male (finding) [facility] Evaluation note Note Date & Type Note Facility Evaluation note No assessment information availa ble [facility] Work Phone: Reason for referral (narrative) Note Date & Type Note Facility Reason for referral (narrative) No reason for referral information available [facility] Work Phone: Summary Purpose Family History No Family History Records FoundNo Family History Records Found Advance Directives No Advanced Directives Records FoundNo Advanced Directives Records Found Chief Complaint and Reason for Visit Chief Complaint Admit Date Hypothyroidism January 04, 2025 1:2 7pm Chief Complaint Admit Date Hypothyroidism January 04, 2025 1:2 7pm [facility] February 28, 2025 11:43 am Additional Source Comments Goals (unrecognized section and content) Goals may be documented in a n alternate sectionGoals may be documented in an alternate sectionGoals may be documented in an alternate sectionGoals may be documented in an alternate sectionGoals may be documented in an alternate sectionGoals may be documented in an alternate section Care Teams (unrecognized sec tion and content) Team Status: Active Member Role Status Dates Dr. John Medina MD Family Provider Active Dr. Ugo Sanchez DO Primary Care Provider Active Team Status: Inactive Member Role Status Dates Dr. Ugo Sanchez DO Primary Care Provider, Attendin g Provider Active Team Status: Inactive Member Role Status Dates Dr. Ugo Sanchez DO Primary Care Prov ider, Attending Provider, Referring Provider Active Team Status: Active Member Role Status Dates Dr. John Medina MD Family Provider Active Janee Calhoun NP-Linda Primary Care Provider Active Team Status: Inactive Member Role Status Dates LUZMARIA Trimble Primary Care Provider, Attending Hayley aguilar Active Team Status: Active Member Role Status Dates Janee Calhoun NP-Linda Primary Care Provider Active Team Status: Inactive Member Role Status Dates Janee Calhoun NP-Linda Primary Care Provider Active Start: November 18, 2024 End: November 18, 2024 Janee Calhoun NP-Linda Attending Provider Active St art: November 18, 2024 End: November 18, 2024 Janee Calhoun NP-Linda Referring Provider Active St art: November 18, 2024 End: November 18, 2024 Team Status: Inactive Member Role Status Dates LUZMARIA Trimble Primary Care Provider Active Start: January 04, 2025 End: January 04, 2025 LUZMARIA Trimble Attending Provider Active St art: January 04, 2025 End: January 04, 2025 Janee Calhoun NP-Linda Referring Provider Active St art: January 04, 2025 End: January 04, 2025 Team Status: Inactive Member Role Status Dates Janee Calhoun NP-Linda Primary Care Provider Active Start: February 28, 2025 End: February 28, 2025 LUZMARIA Trimble Attending Provider Active St art: February 28, 2025 End: February 28, 2025 LUZMARIA Trimble Referring Provider Active St art: February 28, 2025 End: February 28, 2025 (unrecognized sect ion and content) No Status Records FoundNo Status Records Found INFORMATION SOURCE (unrecogn ized section and content) DATE CREATED AUTHOR 01/15/2024 [facility] DATE CREATED AUTHOR AUTHOR'S BLANCA ATION 03/07/2025 [facility] FOR RECORDS PERTAINING TO PATIENTS WHO ARE OR HAVE BEEN ENROLLED IN A CHEMICAL DEPENDENCY/SUBSTANCEABUSE PROGRAM, SOME INFORMATION MAY BE OMITTED. This clinical summary was aggregated from multiple sources. Caution should be exercised in using it in the provision of clinical care. This summary normalizes information from multiple sources, and as a consequence, information in this document may materially change the coding, format and clinical context of patient data. In addition, data may be omitted in some cases. CLINICAL DECISIONS SHOULD BE BASED ON THE PRIMARY CLINICAL RECORDS. [employer] provides no warranty or guarantee of the accuracy or completeness of information in this document.
== END | disposition home or self-care (01) ==
LOC: MTLAB 11:06
PROVIDERS: PCP Nurse Practitioner Family; Referring Provider Nurse Practitioner Family; Visit Provider Nurse Practitioner Family
DX: Z12.5 Encounter for screening for malignant neoplasm of prostate (principal); I10 Essential (primary) hypertension; E78.5 Hyperlipidemia, unspecified
CPT/HCPCS: 36415; 80053; 80061; 84153; 85025; G0103